=== PATIENT | male | born 1955 | race Caucasian/White ===

== ENCOUNTER 2017-08-15 06:42 | Day surgery (SDC) | payer BC ==
[~2017-08-15] VITALS: Ht 170.2 cm; Wt 95.5 kg
--- NOTE | ~2017-08-15 | OP ---
PATIENT NAME: TANMAY BANGURA MEDICAL RECORD: [id number] :59 LOCATION:D.OPS ADMISSION DATE: SURGEON: DILLON MACKAY MD DATE OF OPERATION: 08/15/2017 PREOPERATIVE DIAGNOSES: 1. Gastroesophageal reflux. 2. 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 3. Desires screening colonoscopy. POSTOPERATIVE DIAGNOSES: 1. Gastroesophageal reflux. 2. 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 3. Desires screening colonoscopy. 4. Small hiatal hernia. 5. Nodular appearance to the lesser curve of the stomach, rule out a carpeting polyp. 6. Mild left-sided diverticulosis. 7. Enlarged internal hemorrhoids. PROCEDURES: 1. Esophagogastroduodenoscopy with antral, lesser curve, and distal esophageal biopsies. 2. Total colonoscopy to cecum. SURGEON: Dillon Mackay MD [employer] WORKER: None. BLOOD LOSS: Minimal. ANESTHESIA: IV sedation. COMPLICATIONS: None. Reason for the anesthesia staff being present during the procedure includes sleep apnea and possible need for airway manipulation during the procedure. The prep was excellent. ENDOSCOPIC COURSE: The patient was conveyed to endoscopy suite electively on 08/15/2017. IV sedation was induced by the anesthesia staff. A bite block was inserted. A gastroscope was inserted into the mouth. It was advanced easily into the hypopharynx. The esophagus was easily intubated as were the stomach and duodenum. Upon withdrawal, retroflexed and angulus views were obtained. Antral biopsies were obtained. Lesser curve biopsies were obtained in an area that may represent a polyp. This was approximately 3 cm and was oval in shape. Cold endoscopic biopsies then obtained in an area at the Z line and there did appear to be a patch of Chaparro esophagus, which was nodular. The endoscope was then withdrawn under direct vision. The patient was turned 180 degrees and placed in the Grant position. A digital rectal examination was performed. The prostate was symmetric and without OPERATIVE REPORT [id number] TANMAY BANGURA nodules and was normal in size for age. The prep was excellent. I was able to advance to the cecum easily. I then slowly withdrew the endoscope. A combination of normal imaging and narrow band imaging were utilized. I dragged the folds. The pullback was greater than 18-minute pullback. Retroflexed view was obtained in the rectum. I then unretroflexed the scope and removed it under direct vision. It is not necessary for Mat to see me in the office. I will be seeing him here at work as he is a friend of mine. Unless he develops new symptoms such as rectal bleeding, his next colonoscopy can take place in 10 years. His next surveillance upper endoscopy with biopsies due to a history of Chaparro esophagus should take place in 2 years. TRANSINT:[id number] Voice Confirmation ID: [id number] DOCUMENT ID: [id number] DILLON MACKAY MD at 1816 CC: [id number] DICTATION DATE: 08/15/17 0939 PERSONAL TRAINER: 08/15/17 1151 [facility] 08/15/17 [facility] [address] [place] [address]
--- NOTE | ~2017-08-15 | HP ---
PATIENT: TANMAY BANGURA MEDICAL RECORD: [id number] ACCOUNT: [id number] LOCATION:[facility] : 59 ADMISSION DATE: 08/15/17 HISTORY AND PHYSICAL EXAMINATION CHIEF COMPLAINT: Here for endoscopy. HISTORY OF PRESENT ILLNESS: The patient had a history of Chaparro's. He has some volume reflux symptoms, but they are pretty well controlled on a special pillow. He takes Prilosec as well. He has had dysphagia in the past, none now. The patient desires a screening colonoscopy. He has had no melena. No hematochezia. ALLERGIES: No known drug allergies. HOME MEDICATIONS: Allopurinol, aspirin, bupropion, lisinopril, metformin, omeprazole, and Victoza. SOCIAL HISTORY: Ex-smoker. PAST MEDICAL AND SURGICAL HISTORY: Sleep apnea, hypertension, history of a TIA in 1988, diabetes mellitus, gastroesophageal reflux, history of kidney stones, history of fatty liver, history of clavicular surgery, history of lap brandi, history of umbilical hernia repair, history of tonsillectomy and adenoidectomy. PHYSICAL EXAMINATION: GENERAL: The patient does not appear acutely ill. He does not appear chronically ill. VITAL SIGNS: Reviewed. HEAD: External ears appear normal. EYES: Extraocular movements are intact. NECK: Trachea is midline. CHEST: No intercostal retractions. NEUROLOGIC: Nonfocal. IMPRESSION: Chaparro esophagus, gastroesophageal reflux, desires screening colonoscopy. PLAN: 1. EGD with biopsies. 2. Colonoscopy. TRANSINT:[id number] Voice Confirmation ID: [id number] DOCUMENT ID: [id number] MICHAEL MACKAY MD at 1843 CC: [id number] LAMA DO [id number] DICTATION DATE: 08/15/17 0839 COLLECTION CORRESPONDENT: 08/15/17 0857 [facility] 08/15/17 [facility] [address] [place] [address]
[2017-08-15 06:57] LABS: BASOPHILS 0.6 % (0-2); EOSINOPHILS 3.7 % (0-7); HEMATOCRIT 43.9 % (42.0-54.0); HEMOGLOBIN 15.9 g/dL (13.5-17.5); IMMATURE GRANULOCYTES 0.3 % (0-5); LYMPHOCYTES 29.7 % (15-50); MCH 33.9 pg (26.0-34.0); MCHC 36.2 g/dL (31.0-37.0); MCV 93.6 fL (80.0-100.0); MEAN PLATELET VOLUME 9.3 fL (7.4-10.4); MONOCYTES 8.3 % (2-11); NEUTROPHILS 57.4 % (40-80); PLATELET COUNT 136 10x3/uL (130-400); RBC 4.69 10x6/uL (4.20-6.10); RDW 13.9 % (11.5-14.5); WBC 6.2 10x3/uL (4.8-10.8)
[2017-08-15 07:06] LABS: CALC OSMOLALITY 281 mosm/kg (275-300); CALCIUM 8.9 mg/dL (8.5-10.1); CARBON DIOXIDE 23.4 mmol/L (21.0-32.0); CHLORIDE - SERUM 104 mmol/L (98-107); GLUCOSE 135 mg/dL (74-106); POTASSIUM - SERUM 4.4 mmol/L (3.5-5.1); SODIUM 139 mmol/L (136-145); UREA NITROGEN 17 mg/dL (7-18); eGFR NON AFRICAN AMERICAN 81 mL/min (90-120)
[2017-08-15] MEDS ORDERED: VICTOZA0.6 MG/0.1 SQ (07:40)
[2017-08-15] MEDS ORDERED: ZYLOPRIM300 MG PO (07:40)
[2017-08-15] MEDS ORDERED: BUPROPION XL300 MG PO (07:40)
[2017-08-15] MEDS ORDERED: LISINOPRIL10 MG PO (07:41)
[2017-08-15] MEDS ORDERED: ZOFRAN ODT4 MG/UDTAB PO (07:41)
[2017-08-15] MEDS ORDERED: OMEPRAZOLE20 M1 PO (07:41)
[2017-08-15] MEDS ORDERED: GLUCOPHAGE500 MG PO (07:42)
[2017-08-15 07:51] VITALS: Ht 170.2 cm; Wt 95.5 kg
== END 2017-08-15 12:17 | disposition home or self-care (01) ==
LOC: D.OPS 06:42
PROVIDERS: Anesthesiology
DX: Z12.11 Encounter for screening for malignant neoplasm of colon (principal); K22.70 Barrett's esophagus without dysplasia; K44.9 Diaphragmatic hernia without obstruction or gangrene; K21.9 Gastro-esophageal reflux disease without esophagitis; K57.30 Diverticulosis of large intestine without perforation or abscess without bleeding; K64.8 Other hemorrhoids; G47.30 Sleep apnea, unspecified; I10 Essential (primary) hypertension; Z86.73 Personal history of transient ischemic attack (TIA), and cerebral infarction without residual deficits; E11.9 Type 2 diabetes mellitus without complications; K76.0 Fatty (change of) liver, not elsewhere classified; Z79.82 Long term (current) use of aspirin; Z79.84 Long term (current) use of oral hypoglycemic drugs; Z79.899 Other long term (current) drug therapy